=== PATIENT | male | born 1980 | race Caucasian/White ===

== ENCOUNTER → 2016-11-26 | Outpatient (CLI) | payer OTHER ==
--- NOTE | 2016-11-26 18:58 | RADRPT ---
EXAM DATE/TIME: 11/26/2016 17:16 CORRECTION Corrected on: November 27, 2016; [facility] COMPARISON: No previous studies available for comparison. INDICATIONS : Chain and swelling in the left knee. History of prior trauma. Evaluate for Meni scus tear. MEDICAL HISTORY : Gastroesophageal reflux disease. SURGICAL HISTORY : Cholecystectomy. Cyst removal, lower back. ENCOUNTER: Initial ACUITY: 3 months PAIN SCORE: 8/10 LOCATION: Left knee. TECHNIQUE: Multiplanar, multisequence MRI examination was performed without cont rast. FINDINGS: CRUCIATE LIGAMENTS: ACL and PCL are intact. MENISCI: There is a subtle radial tear between the anterior horn and body of the medial meniscus. There is a small amount of surrounding soft tissue edema. COLLATERAL LIGAMENTS: MCL and LCL complexes are intact. BONE/CARTILAGE: Bone marrow signal is homogeneous. Articular cartilage signal is within normal li mits. MISCELLANEOUS: There is a small joint effusion. There is mild anterior soft tissue swelling and e ryann. Extensor mechanism is intact. CONCLUSION: 1. There is a subtle radial tear between the anterior horn and body of the medial meniscus. There is a small amount of surrounding soft tissue edema. Mild anterior soft tissue swelling and edema. 2. Small joint effusion. 3. The cruciate and collateral ligaments appear intact as well. Tulio Cherry MD on November 26, 2016 at 18:53 Board Certified Radiologist. This report was verified electronically. Tulio Cherry MD on November 27, 2016 at 9:04 Board Certified Radiologist. This report was verified electronically. The case was reviewed with a Fellowship trained musculoskeletal radiologist.
== END ==
LOC: HRAD 16:12
PROVIDERS: ATTEND Orthopaedic Surgery
DX: S83.207A Unspecified tear of unspecified meniscus, current injury, left knee, initial encounter (principal)
CPT/HCPCS: 73721

== ENCOUNTER → 2017-01-17 | Day surgery (SDC) | payer OTHER ==
[~2017-01-17] VITALS: Ht 180.3 cm; Wt 166.0 kg
[~2017-01-17] MED LIST: BUPIVACAINE/EPINEPHRINE 0.5% PF 10 ML VIAL INFIL ONE; BUPIVACAINE/EPINEPHRINE 0.5% PF 10 ML VIAL ONE; CARI1CAP2 PO; CHLORHEXIDINE GLUCONATE 2 % 1 PACK (2 CLOTHS) TOPICAL PRN; CHLORHEXIDINE GLUCONATE 4% SOLN 120 ML BTL TOPICAL SCH; DEPA500T3 PO; DIPH1TAB2 PO; INSULIN HUMAN REGULAR 1,000 UNITS/10 ML VIAL SQ PRN; LACTATED RINGER'S 1000 ML IV PRN; METOPROLOL TARTRATE 25 MG TAB PO PRN; MIDAZOLAM HCL 2 MG/2 ML VIAL ONE; ONDANSETRON HCL 4 MG/2 ML VIAL IV PUSH ONE; PANT20 PO; POVIDONE IODINE 5% (ANTISEPSIS KIT) 4 APPLICATIONS EACH NARE PRN; PROPOFOL 200 MG/20 ML AMP IV ONE; SODIUM CHLORID 0.9% 500 ML IV PRN; TRIAMCINOLONE ACETONIDE 40 MG/ML VIAL ONE
[2017-01-17 06:40] VITALS: BP 161/98; PULSE 98; RESP 24; TEMP 97.6; O2SAT 95
[2017-01-17 10:45] VITALS: BP 128/72; PULSE 88; RESP 15; TEMP 98; O2SAT 99
--- NOTE | 2017-01-17 11:06 | MP ---
cc: JACINTO LOPEZ M.D. DATE OF SURGERY 01/17/[address] Murphy Lopez PREOPERATIVE DIAGNOSIS Tear medial meniscus of the left knee joint. POSTOPERATIVE DIAGNOSIS 1. Chondromalacia/osteoarthritis medial femoral condyle. 2. Tear medial meniscus PROCEDURE 1. Chondroplasty left medial femoral condyle. 2. Subtotal medial meniscectomy. DETAILS OF THE PROCEDURE The patient was placed on the operating table in A supine position and general anesthesia was administered by the anesthesiologist. The patient's left knee was then exsanguinated utilizing an Esmarch bandage. The time-out was therefore verified with regards to the patient's name, procedure, location, etc. An anterolateral portal stab wound was made with a 15 blade and the double cannula was inserted and the joint was distended with lactated Ringer's solution. A spinal needle was placed into the medial compartment and a meniscal resector was placed in the same direction. A systematic examination of the joint revealed unremarkable patellofemoral joint and suprapatellar pouch. There was a very shallow plica noted and after initial insertion, we were able to evacuate a copious amount of serosanguineous fluid. The intercondylar fossa was entered and the anterior and posterior cruciate ligaments did appear to be intact. The ACL was somewhat frayed. The medial compartment was entered and we immediately encountered a complex tearing of the posterior horn extending to the junction of the middle one third. The tear was almost to the attachment of the meniscus. We were able to remove the tear with multiple instruments including hand punches and a meniscal resector. All debris was also removed. The articular surface was smoothed and shaved with the same resector completing the chondroplasty. The lateral compartment was entered, examined and found to be intact and in pristine condition. This included the lateral meniscus. The joint was thoroughly aspirated of fluid and the two stab wounds were closed with simple 3-0 nylon. An intra-articular injection of 15 cc of one-quarter percent Marcaine with epinephrine and 1 cc of Kenalog was inserted through the lateral portal. Xeroform gauze was applied over both wounds and a sterile dressing of a compression nature was applied to the knee joint. The tourniquet was deflated after 18 minutes of being up. The sponge count, needle count and instrument counts were reported correct x2. The estimated blood loss was minimal the procedure was tolerated well and the patient was transferred to the recovery room in satisfactory condition. MD PAYAM Yoder/CHRIS /8:58 AM /11:04 AM
== END | disposition home or self-care (01) ==
LOC: PHSDC 06:16
PROVIDERS: ATTEND Orthopaedic Surgery
DX: S83.232A Complex tear of medial meniscus, current injury, left knee, initial encounter (principal); M22.42 Chondromalacia patellae, left knee; M17.12 Unilateral primary osteoarthritis, left knee; D64.9 Anemia, unspecified; X50.1XXA Overexertion from prolonged static or awkward postures, initial encounter
CPT/HCPCS: 01400; 29881; E0113; J2250; J2405; J3010; J3301; J7120